=== PATIENT | female | born 1990 | race Caucasian/White ===

== ENCOUNTER 2021-08-18 21:40 | Emergency (ER) | payer MEDICAID ==
[~2021-08-18] VITALS: Ht 157.5 cm; Wt 61.2 kg
[2021-08-18 21:42] VITALS: BP_SYST 97
--- NOTE | 2021-08-18 21:45 | NUR ---
ER examining patient in [facility].
--- NOTE | 2021-08-18 21:47 | NUR ---
Placed in room 1 . Placed on air sampling and monitoring, blood pressure machine and pulse oximeter. To gown for exam. Side rails up. Report given to Jaclyn LATHAM.
--- NOTE | 2021-08-18 21:47 | NUR ---
Pt brought by self, A&Ox4, pt presents to ER with headache/ dizziness/ L arm numbness and episodes of confusion since yesterday, pt ambulatory, respirations even and unlabored, cap refill <3, VSS, intact ROM, denies blurred vision.
--- NOTE | 2021-08-18 21:50 | NUR ---
Code stroke initiated @5753
--- NOTE | 2021-08-18 21:52 | NUR ---
Pt A&Ox4, ambulatory, intact ROM, no facial drop noted,follows commands.
--- NOTE | 2021-08-18 21:58 | NUR ---
Pt off the unit for CT
--- NOTE | 2021-08-18 22:10 | NUR ---
Pt returned to ER on stable condition.
[2021-08-18 22:29] LABS: WHITE BLOOD COUNT (AUTO) 5.6 K/uL (4.8-10.8)
--- NOTE | 2021-08-18 22:30 | NUR ---
Pt A&Ox4,VSS, respirations even and unlabored.
[2021-08-18 22:34] LABS: HEMATOCRIT 38.8 % (36-48); MEAN CORPUSCULAR HEMOGLOBIN 31 pg (27-31); MEAN CORPUSCULAR HGB CONC 34 % (32-36); MEAN CORPUSCULAR VOLUME 92 fL (79.0-98.0); PLATELET COUNT (AUTO) 237 K/uL (130-430); RED BLOOD CELL COUNT(AUTO) 4.21 MIL/uL (4.2-6.2); RED CELL DISTRIBUTION WIDTH 13.4 % (9.0-15.0)
[2021-08-18 22:43] LABS: PROTHROMBIN TIME 10.1 SECS (9.5-12.5)
[2021-08-18] MEDS ORDERED: ONDANSETRON HCL 4 MG/2 ML VIAL IVP ONE (22:45)
[2021-08-18] MEDS ORDERED: NACL 0.9% 1,000 ML IV ONE (22:45)
[2021-08-18] MEDS ORDERED: MECLIZINE HCL 25 MG TABLET (ANITVERT) PO ONE (22:45)
[2021-08-18] MEDS ORDERED: ONDA-8 TL (22:49)
[2021-08-18] MEDS ORDERED: MECL-160 PO (22:49)
[2021-08-18 22:51] LABS: ANION GAP 5 (5-15); CHLORIDE 103 mmol/L (98-107); GLUCOSE 79 mg/dL (70-99); POTASSIUM 3.6 mmol/L (3.5-5.1); SODIUM SERUM 136 mmol/L (136-145)
[2021-08-18 22:52] LABS: ASPARTATE AMINOTRANSFERASE 12 U/L (10-37); CALCIUM 8.5 mg/dL (8.4-11.0); CREATININE 0.62 mg/dL (0.55-1.30); GFR AFRICAN AMERICAN 143 mL/min (>90); TOTAL BILIRUBIN 0.2 mg/dL (0.0-1.0); UREA NITROGEN, BLOOD 10 mg/dL (8-21)
[2021-08-18 22:53] LABS: ALANINE AMINOTRANSFERASE 14 U/L (12-78); ALBUMIN 3.6 g/dL (3.4-4.8)
[2021-08-18 22:57] LABS: BAND % (MANUAL) 0 % (0-6); BASOPHILS % (MANUAL) 0 % (0-2); EOSINOPHILS % (MANUAL) 1 % (0-7); LYMPHOCYTES % (MANUAL) 29 % (20-46); MONOCYTES % (MANUAL) 6 % (0-11)
--- NOTE | 2021-08-19 00:18 | NUR ---
Dr Thorne given results to patient.
[2021-08-19 00:34] VITALS: BP_SYST 97
--- NOTE | 2021-08-19 00:36 | NUR ---
Patient given written and verbal discharge instructions and verbalizes understanding. ER MD discussed with patient the results and treatment provided. Patient in stable condition. ID arm band removed. Rx of Meclizine and Zofran given. Patient educated on pain management and to follow up with PMD. Pain Scale 0/10. Opportunity for questions provided and answered. Medication side effect fact sheet provided.
== END 2021-08-19 00:36 | disposition home or self-care (01) ==
LOC: SED 21:40
DX: R42 Dizziness and giddiness (principal); Z79.899 Other long term (current) drug therapy
CPT/HCPCS: 36415; 70450; 70496; 70498; 71045; 76376; 80053; 82550; 82962; 83605; 83880; 84484; 84703; 85007; 85027; 85610; 85730; 93005; 96361; 96374; 99285; J2405; J7030; J8597; Q9967